=== PATIENT | female | born 1985 | race African-American/Black ===

== ENCOUNTER 2021-11-11 14:45 | Emergency (ER) | payer SELFPAY ==
[~2021-11-11] VITALS: Ht 172.7 cm; Wt 74.8 kg
[2021-11-11] MEDS ORDERED: ACETAMINOPHEN 325 MG TABLET PO ONE (15:00)
[2021-11-11] MEDS ORDERED: IV NORMAL SALINE 1000 ML BAG IV ONE (15:00)
[2021-11-11] MEDS ORDERED: ACETAMINOPHEN 325 MG TABLET ONE (15:12)
[2021-11-11] MEDS ORDERED: METOCLOPRAMIDE HCL 10 MG/2 ML VIAL ONE (15:13)
[2021-11-11] MEDS ORDERED: METOCLOPRAMIDE HCL 10 MG/2 ML VIAL IV ONE (15:15)
[2021-11-11 15:26] LABS: HEMATOCRIT 36.2 % (31.2-41.9); MEAN CORPUSCULAR HEMOGLOBIN 31.1 uug (24.7-32.8); MEAN CORPUSCULAR VOLUME 91.8 fL (75.5-95.3); PLATELET COUNT (AUTO) 239 K/uL (179-408)
[2021-11-11 15:31] LABS: CREATININE 0.9 mg/dL (0.6-1.3); POTASSIUM 4.3 mmol/L (3.5-5.1)
[2021-11-11 15:37] LABS: BILIRUBIN,DIRECT 0.1 mg/dL (0.0-0.2); BILIRUBIN,TOTAL 0.4 mg/dL (0.2-1.0); TOTAL PROTEIN, SERUM 6.7 g/dL (6.4-8.2)
--- NOTE | 2021-11-11 16:00 | NUR ---
Patient was seen by . complete. Urine sent to lab. States she feels less pain at this time
[2021-11-11 16:04] LABS: *BILIRUBIN,URIN NEGATIVE (NEGATIVE); *BLOOD, URINE NEGATIVE (NEGATIVE); *CLARITY,URINE CLEAR (CLEAR); *COLOR,URINE YELLOW (YELLOW); *KETONES,URINE NEGATIVE (NEGATIVE); *UROBILINOGEN,URINE 0.2 E.U./dl (NORMAL); LEUKOCYTE ESTERASE ,URINE NEGATIVE (NEGATIVE); NITRITE, URINE NEGATIVE (NEGATIVE); UGLUCOSE NEGATIVE (NEGATIVE)
[2021-11-11] MEDS ORDERED: METO-295 PO (16:11)
[2021-11-11] MEDS ORDERED: ACET-2154 PO (16:11)
--- NOTE | 2021-11-11 16:22 | NUR ---
DC and follow up instructions given and explained to patient who states he understands all instructions
--- NOTE | 2021-11-11 16:23 | NUR ---
IV removed. Catheter intact and site benign. Pressure and 4x4 gauze applied to site. No bleeding noted.
== END 2021-11-11 16:32 | disposition home or self-care (01) ==
LOC: ER 14:45
DX: O34.82 Maternal care for other abnormalities of pelvic organs, second trimester (principal); N83.292 Other ovarian cyst, left side; Z3A.00 Weeks of gestation of pregnancy not specified; O26.891 Other specified pregnancy related conditions, first trimester; R10.2 Pelvic and perineal pain; K58.9 Irritable bowel syndrome, unspecified
CPT/HCPCS: 36415; 76856; 80048; 80076; 81003; 84702; 85025; 86850; 86900; 86901; 96361; 96374; 99284; J2765; J7040; A4663